=== PATIENT | male | born 1945 | race Caucasian/White ===

== ENCOUNTER 2018-06-04 18:47 | Emergency (ER) | payer BC ==
--- NOTE | 2018-06-04 18:59 | Emergency Department Record ---
History of Present Illness - General Chief Complaint: Confusion Stated Complaint: CONFUSION Time Seen by Provider: 06/04/18 18:51 Source: Patient Mode of Arrival: EMS Limitations: No limitations - History of Present Illness Initial Comments: 73 yo male presents by EMS. By history he was involved in an argument with a financial systems manager. He confirms this to be the case. He states she was arguing with him and "would not keep her mouth shut" He is calm and cooperative at this time. He denies any injury or pain. He agrees with an examination and tests if needed. EMS stated "family was concerned about UTI" because of behavior changes. The patient states he feels great. The caregiver Trinidad gives the history he has been easy to anger, throws fits, throws objects, and has made comments about shooting himself. No gun in the house. He does have a cardiac history. He is on Plavix Onset/Timin -: Hour(s) Severity: Mild Consistency: Now resolved Context: Other Associated Symptoms: Denies other symptoms - [place] Coma Scale Eye Response: (4) Open spontaneously Motor Response: (6) Obeys commands Verbal Response: (5) Oriented [place] Total: 15 - Related Data Home Medications Medication Instructions Recorded Confirmed Last Taken Atorvastatin Calcium 40 mg PO DAILY 06/04/18 06/04/18 Unknown Citalopram Hydrobromide 40 mg PO DAILY 06/04/18 06/04/18 Unknown [Citalopram HBr] Clopidogrel Bisulfate [Clopidogrel] 75 mg PO DAILY 06/04/18 06/04/18 Unknown Donepezil HCl 10 mg PO DAILY 06/04/18 06/04/18 Unknown Lisinopril [Zestril] 2.5 mg PO DAILY 06/04/18 06/04/18 Unknown Memantine HCl [Namenda] 10 mg PO BID 06/04/18 06/04/18 Unknown Metformin HCl 1,000 mg PO BID 06/04/18 06/04/18 Unknown Metoprolol Tartrate [Lopressor] 25 mg PO Q12H 06/04/18 06/04/18 Unknown Omeprazole 20 mg PO DAILY 06/04/18 06/04/18 Unknown Allergies Allergy/AdvReac Type Severity Reaction Status Date / Time No Known Drug Allergies Allergy Unverified 01/08/18 19:26 Travel Screening - Travel/Exposure Within Last 30 Days Have you traveled within the last 30 days?: No Review of Systems Constitutional: Denies: Chills, Fever, Malaise, Weakness Eyes: Denies: Eye discharge ENT: Denies: Congestion, Throat pain Respiratory: Denies: Cough Cardiovascular: Denies: Chest pain, Syncope Endocrine: Denies: Fatigue Gastrointestinal: Denies: Abdominal pain, Diarrhea, Nausea, Vomiting Genitourinary: Denies: Dysuria, Frequency, Hematuria Musculoskeletal: Denies: Arthralgia, Back pain, Joint swelling, Myalgia Skin: Denies: Bruising, Change in color, Rash Neurological: Denies: Headache, Numbness, Tingling, Tremors, Weakness Psychiatric: Denies: Anxiety Hematological/Lymphatic: Denies: Easy bleeding, Easy bruising Past Medical History - SOCIAL HISTORY Smoking Status: Never smoker Alcohol Use: None Drug Use: None - RESPIRATORY Hx Respiratory Disorders: No - CARDIOVASCULAR Hx Cardio Disorders: Yes Hx Hypertension: Yes Hx Pacemaker/Defib: Yes - NEURO Hx Neuro Disorders: Yes Hx Dementia: Yes - GI Hx GI Disorders: Yes Hx Reflux: Yes - Hx Genitourinary Disorders: No - ENDOCRINE Hx Endocrine Disorders: Yes Hx Diabetes: Yes - MUSCULOSKELETAL Hx Musculoskeletal Disorders: No - PSYCH Hx Psych Problems: Yes Hx Depression: Yes - HEMATOLOGY/ONCOLOGY Hx Hematology/Oncology Disorders: No Family Medical History Any Significant Family History?: No Physical Exam - General General Appearance: Alert, Oriented x3, Cooperative, No acute distress Limitations: No limitations - Head Head exam: Atraumatic, Normocephalic, Normal inspection - Eye Eye exam: Normal appearance, PERRL. negative: Conjunctival injection, Scleral icterus - ENT ENT exam: Normal exam, Mucous membranes moist, Normal orophraynx Ear exam: Normal external inspection Nasal Exam: Normal inspection Mouth exam: Normal external inspection Teeth exam: Normal inspection Throat exam: Normal inspection - Neck Neck exam: Normal inspection, Full ROM. negative: Tenderness - Respiratory Respiratory exam: Normal lung sounds bilaterally. negative: Respiratory distress, Rhonchi, Stridor, Wheezes - Cardiovascular Cardiovascular Exam: Regular rate, Normal rhythm, Normal heart sounds - GI/Abdominal GI/Abdominal exam: Soft. negative: Distended, Guarding, Tenderness - Rectal Rectal exam: Deferred - exam: Deferred - Extremities Extremities exam: Normal inspection, Full ROM, Normal capillary refill. negative: Calf tenderness, Pedal edema, Tenderness - Back Back exam: Reports: Normal inspection, Full ROM. Denies: CVA tenderness (R), CVA tenderness (L), Muscle spasm, Paraspinal tenderness, Rash noted, Tenderness , Vertebral tenderness - Neurological Neurological exam: Alert, Oriented X3. negative: Altered - Psychiatric Psychiatric exam: Normal affect, Normal mood. negative: Agitated, Anxious - Skin Skin exam: Dry, Intact, Normal color, Warm Course Vital Signs 06/04/18 18:49 Temperature 98.6 F Pulse Rate 67 Respiratory 16 Rate Blood Pressure 131/69 Pulse Ox 97 - Reevaluation(s) Reevaluation #1: The vitals were reviewed No acute changes He is currently cooperative, no complaints, willing to be examined and checked out. 06/04/18 18:58 06/04/18 20:46 EKG#1 sinus rhythm, rate is 61, intervals normal, st normal, axis normal, no acute changes. 06/04/18 21:48 No acute process on the labs The HCT was reviewed The radiologist called and notified there appears to be subarachnoid blood bilaterally in the superior parietal gyri left greater than right. No mass effect The patient first choice is transfer to [facility] 06/04/18 22:06 06/04/18 22:10 The patient states now he fell last week, hit the back of his head. They did not think it was an issue at the time. 06/04/18 22:28 Dr Pastrana accepts the patient for ED to ED transfer for evaluation of the subarachnoid hemorrhage The patient remains calm and stable. He and his care takers were informed/updated Medical Decision Making - Lab Data Result diagrams: 06/04/18 20:00 06/04/18 20:00 Disposition Disposition: Transfer Clinical Impression: Aggressive behavior, Subarachnoid bleed Disposition: Acute Care Hospital Transfer Transfer To: [facility] Reason For Transfer: Sub arachnoid hemorrhage Accepting Physician: Dr Pastrana Time Discussed w/Accepting Physician: 22:29 Condition: (2) Stable Forms: Patient Portal Access Time of Disposition: 22:08 Quality - Quality Measures Quality Measures: N/A - Blood Pressure Screening Does Patient Have Any of the Following: Active Dx of HTN Blood Pressure Classification: Pre-Hypertensive BP Reading Systolic Measurement: 131 Diastolic Measurement: 69 Screening for High Blood Pressure: Patient Exclusion, Hx of HTN [G9744] Pre-Hypertensive Follow-up Interventions: Referral to alternative/primary care provider.
[2018-06-04 19:09] LABS: URINE APPEARANCE CLEAR; URINE BILIRUBIN NEGATIVE (NEGATIVE); URINE BLOOD MODERATE (NEGATIVE); URINE COLOR YELLOW; URINE GLUCOSE (UA) NEGATIVE (NEGATIVE); URINE KETONE NEGATIVE (NEGATIVE); URINE LEUKOCYTE ESTERASE NEGATIVE (NEGATIVE); URINE NITRITE NEGATIVE (NEGATIVE); URINE UROBILINOGEN 0.2 E.U./dL (0.20 - 1.00)
[2018-06-04 19:18] LABS: URINE BACTERIA NONE SEEN; URINE EPITHELIAL CELLS 0 - 2 (FEW); URINE WBC 0 - 2 (0-2/hpf)
[2018-06-04 20:07] LABS: BASO % 0.2 % (0-6); EOS % 3.4 % (0-6); GRAN % 69.6 % (47-80); HEMATOCRIT 41.2 % (42.0-52.0); HEMOGLOBIN 14.5 gm/dl (14.0-18.0); LYMPH % 18.9 % (16-45); MEAN CELL VOLUME 87.7 fl (81-97); MEAN CORPUSCULAR HEMOGLOBIN 30.9 pg (27-33); MEAN CORPUSCULAR HGB CONC 35.2 g/dl (32-36); MEAN PLATELET VOLUME 8.8 fl (7.4-10.4); MONO % 7.9 % (0-9); PLATELET COUNT 203 K/uL (130-400); RED CELL DISTRIBUTION WIDTH 12.6 % (11.5-14.5); WHITE BLOOD COUNT W/O DIFF 6.2 K/uL (4.2-12.2)
[2018-06-04 20:18] LABS: BLOOD UREA NITROGEN 15 mg/dL (8-23); CREATININE 0.8 mg/dL (0.7-1.2); EST GLOMERULAR FILTRATION RATE > 60 mL/min
[2018-06-04 20:19] LABS: TOTAL PROTEIN 7.1 g/dL (6.6-8.7)
[2018-06-04 20:21] LABS: GLUCOSE,RANDOM 195 mg/dL (74-109)
[2018-06-04 20:24] LABS: ALB/GLOB RATIO 1.4 (1.1-1.8); ALBUMIN 4.2 g/dL (4.0-5.0); ALKALINE PHOSPHATASE 119 U/L (40-129); ALT/SGPT 15 U/L (<41); AST/SGOT 15 U/L (10.0-50.0)
[2018-06-04 20:38] LABS: ACETAMINOPHEN < 5.0 ug/mL (10.0-30.0); SALICYLATE < 0.3 mg/dL (2.8-20)
[2018-06-04 21:24] LABS: AMPHETAMINE SCREEN URINE NOT DETECTED; BARBITURATE SCREEN URINE NOT DETECTED; BENZODIAZEPINE SCREEN URINE NOT DETECTED; COCAINE SCREEN URINE NOT DETECTED; METHADONE SCREEN URINE NOT DETECTED; METHAMPHETAMINE SCREEN NOT DETECTED; OPIATE SCREEN URINE NOT DETECTED; OXYCODONE SCREEN URINE NOT DETECTED; PHENCYCLIDINE SCREEN URINE NOT DETECTED; PROPOXYPHENE SCREEN URINE NOT DETECTED; THC SCREEN URINE NOT DETECTED; TRICYCLIC ANTIDEPRESSANT SCRN NOT DETECTED
--- NOTE | 2018-06-07 08:20 | CT SCAN REPORT ---
EXAM: NONCONTRAST CT OF THE BRAIN HISTORY: HISTORY OF DEMENTIA WITH ALTERED MENTAL STATUS. TECHNIQUE: Noncontrast CT of the brain was obtained. Comparison: None. FINDINGS: Hyperdense material is noted along the superior parietal convexities bilaterally, more pronounced on the left, and appearing to interdigitate with the cerebral sulci. Findings suspicious for subarachnoid hemorrhage. No additional areas of intracranial hemorrhage are detected. No midline shift, mass effect, or definite cerebral edema. The basal cisterns are not effaced. Mild diffuse prominence of the ventricles and cortical sulci compatible with age related cerebral volume loss. A confluent low attenuation periventricular white matter appearance suggesting chronic small vessel ischemic change. No evidence of displaced calvarial fracture on bone window images. Partial opacification of the left anterior ethmoid air cells as well as the bilateral maxillary sinuses. Suggestion of minimal fluid within the left mastoid air cells. IMPRESSION: 1. FINDINGS SUSPICIOUS FOR A SMALL VOLUME OF SUBARACHNOID HEMORRHAGE ALONG THE SUPERIOR PARIETAL CONVEXITIES BILATERALLY, MORE PROMINENT ON THE LEFT. NO SIGNIFICANT INTRACRANIAL MASS EFFECT IS APPRECIATED. FINDINGS WERE DISCUSSED WITH ORDERING PROVIDER DR. CALVERT AT TIME OF INTERPRETATION. 2. CHRONIC APPEARING CEREBRAL VOLUME LOSS AND LIKELY CHRONIC SMALL VESSEL ISCHEMIC WHITE MATTER CHANGES. 3. SINUS DISEASE INVOLVING BILATERAL ANTERIOR ETHMOID AIR CELLS AND THE MAXILLARY SINUSES WELL PARTIAL OPACIFICATION OF THE LEFT MASTOID AIR CELLS. JOB NUMBER: [id number] [facility]
== END 2018-06-05 00:07 | disposition short-term general hospital (02) ==
LOC: ER 18:47
DX: I60.8 Other nontraumatic subarachnoid hemorrhage (principal); E11.9 Type 2 diabetes mellitus without complications; I10 Essential (primary) hypertension; F91.8 Other conduct disorders; Z79.01 Long term (current) use of anticoagulants; Z79.84 Long term (current) use of oral hypoglycemic drugs
CPT/HCPCS: 99285 ×2; 85025; 80053; 81001; 84443; 80305; 70450; 93005; 93010; G0480 ×3; 80320; 80329